=== PATIENT | female | born 1980 | race Caucasian/White ===

== ENCOUNTER 2016-04-23 15:27 | Emergency (ER) | payer BC ==
[2016-04-23 16:00] VITALS: BP 119/77; PULSE 74; TEMP 98.5; BMI 27.3
--- NOTE | 2016-04-23 16:03 | PDOC ---
History of Present Illness - General History Source: Patient Exam Limitations: No Limitations - History of Present Illness Initial Comments: 04/23/16 16:06 The patient is a 35 year old female, with no significant past medical history, who presents today with a head injury that occurred at 10:30am. She explains that her children were sledding and crashed into her as she was attempting to stop the sled. She states that she was knocked into the air and landed onto her upper back first, then hit her head on the ground. She states that she got the wind knocked out of her. At 12pm, one hour after the accident, she started to feel weird and explains a tingling feeling in her head, but reports that she was also anxious after the head injury. She took 2 advil for the headache with relief. Denies LOC, vomiting, visual changes. Denies any other injury. Denies fever, chills. Allergies: None reported <Janet Barillas - Last Filed: 04/23/16 16:06> <Frederic Antony - Last Filed: 04/23/16 16:10> - General Chief Complaint: Injury Stated Complaint: HIT HEAD Time Seen by Provider: 04/23/16 15:37 Past History <Janet Barillas - Last Filed: 04/23/16 16:06> - Past Medical History Other medical history: DENIES - Psycho/Social/Smoking Cessation Hx Anxiety: No Suicidal Ideation: No Smoking Status: No Smoking History: Never smoked Have you smoked in the past 12 months: No Number of Cigarettes Smoked Daily: 0 Information on smoking cessation initiated: No Hx Alcohol Use: No Drug/Substance Use Hx: No Substance Use Type: None <Frederic Antony - Last Filed: 04/23/16 16:10> - Past Medical History Allergies/Adverse Reactions: Allergies Allergy/AdvReac Type Severity Reaction Status Date / Time No Known Allergies Allergy Verified 04/23/16 15:47 Home Medications: Ambulatory Orders Ibuprofen [Advil -] 400 mg PO ONCE PRN 04/23/16 Review of Systems - Review of Systems Able to Perform ROS?: Yes Comments:: 04/23/16 16:07 CONSTITUTIONAL: Absent: Fever, Chills, Diaphoresis, Generalized Weakness, Malaise, Loss of Appetite HEENT: Absent: Rhinorrhea, Nasal Congestion, Throat Pain, Throat Swelling, Difficulty Swallowing, Mouth Swelling, Ear Pain, Eye Pain, Visual Changes CARDIOVASCULAR: Absent: Chest Pain, Syncope, Palpitations, Irregular Heart Rate, Lightheadedness , Peripheral Edema MUSCULOSKELETAL: Absent: Myalgia, Arthralgia, Joint Swelling, Back pain, Neck Pain SKIN: Absent: Rash, Itching, Pallor NEUROLOGIC: Present: mild head pain Absent: Focal Weakness, Paresthesias, Vertigo, Lightheadedness, Unsteady Gait, Seizure, Mental Status Changes, Incontinence PSYCHIATRIC: Absent: Anxiety, Depression <Janet Barillas - Last Filed: 04/23/16 16:06> *Physical Exam - Vital Signs Last Vital Signs Temp Pulse Resp BP Pulse Ox 98.5 F 74 20 119/77 99 04/23/16 15:29 04/23/16 15:29 04/23/16 15:04/23/16 15:04/23/16 15:29 - Physical Exam Comments: 04/23/16 16:07 GENERAL: [The patient is awake, alert, and fully oriented, in no acute distress. ] HEAD: [Normal with no signs of trauma.] EYES: [Pupils equal, round and reactive to light, extraocular movements intact, sclera anicteric, conjunctiva clear.] EXTREMITIES: [Normal range of motion, no edema. Sensation intact. Circulation intact.] PSYCH: [Normal mood, normal affect.] SKIN: [Warm, Dry, normal turgor, no rashes or lesions noted.] NEURO: Mental status: The patient is oriented x3. Cranial nerves: Cranial nerves II through XII are intact Motor: The upper extremities are 5 over 5 in all muscle groups. The lower extremities are 5 over 5 in all muscle groups. Sensation: Sensation is intact to light touch throughout. Cerebellar: [id number] is normal in both upper extremities. Heel-knee- olson is normal in both lower extremities. Reflexes: 2+ and symmetric in the upper and lower extremities. <Janet Barillas - Last Filed: 04/23/16 16:06> - Vital Signs Last Vital Signs Temp Pulse Resp BP Pulse Ox 98.5 F 74 20 119/77 99 04/23/16 15:29 04/23/16 15:29 04/23/16 15:29 04/23/16 15:29 04/23/16 15:29 <Frederic Antony - Last Filed: 04/23/16 16:10> Medical Decision Making - Medical Decision Making 04/23/16 16:09 Patient is a healthy 35-year-old woman who presents after getting knocked down while her children were sledding. She fell and hit her back and then her head. Given the absence of loss of consciousness and the normal neurological examination, along with her not meeting criteria for CT scanning based on the CT guidelines, patient was reassured and discharged home. She was advised to rest and take Tylenol. She was given head injury instructions for indications for follow-up. Impression: Minor concussion without loss of consciousness. No need for head CT. Plan: Patient given reassurance and advised Tylenol. The scribe's documentation has been prepared under my direction and personally reviewed by me in its entirety. I have confirmed that the note above accurately reflects all work, treatment, procedures, and medical decision- making performed by me. <Frederic Antony - Last Filed: 04/23/16 16:10> *DC/Admit/Observation/Transfer <Janet Barillas - Last Filed: 04/23/16 16:06> - Discharge Dispostion Admit: No <CassiaFrederic Tripathi - Last Filed: 04/23/16 16:10> Diagnosis at time of Disposition: Head injury Qualifiers: Encounter type: initial encounter Qualified Code(s): S09.90XA - Unspecified injury of head, initial encounter - Discharge Dispostion Disposition: HOME Condition at time of disposition: Stable - Referrals Referrals: Hermes Best MD [Primary Care Provider] - - Patient Instructions Printed Discharge Instructions: DI for Closed Head Injury Additional Instructions: You were evaluated today after hitting your head. Based on no loss of consciousness and a normal neurological exam, you do not meet the guidelines for requiring a head CT scan. Rest at home, take tylenol as needed for any mild headache. If you develop severe or progressive symptoms, return immediately to the emergency department. Refer to the head injury discharge instructions. Otherwise follow-up with your primary care MJacqueline
== END 2016-04-23 16:12 | disposition home or self-care (01) ==
LOC: FER 15:27
DX: S09.90XA Unspecified injury of head, initial encounter (principal); W18.39XA Other fall on same level, initial encounter; Y93.23 Activity, snow (alpine) (downhill) skiing, snowboarding, sledding, tobogganing and snow tubing; Y92.89 Other specified places as the place of occurrence of the external cause
CPT/HCPCS: 99282-25

== ENCOUNTER 2018-06-01 17:22 | Emergency (ER) | payer BC ==
[2018-06-01 17:38] VITALS: BP 128/71; PULSE 77; TEMP 98; BMI 28.1
[2018-06-01] MEDS ORDERED: FAMOTIDINE 20 MG TABLET PO ONE (17:42)
[2018-06-01] MEDS ORDERED: predniSONE 20 MG TABLET (UD) PO ONE ×2 (17:42)
[2018-06-01] MEDS ORDERED: predniSONE 20 MG TABLET (UD) ONE (17:44)
[2018-06-01] MEDS ORDERED: FAMOTIDINE 20 MG TABLET ONE (17:44)
[2018-06-01] MEDS ORDERED: predniSONE 10 MG TABLET (UD) ONE (17:44)
--- NOTE | 2018-06-01 17:47 | PDOC ---
History of Present Illness - General Chief Complaint: Allergic Reaction Stated Complaint: allergic reaction Time Seen by Provider: 06/01/18 17:29 - History of Present Illness Initial Comments: 06/01/18 18:01 The patient is a 37 year old female, with no significant PMH, who presents to the emergency department for evaluation of an allergic reaction. 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 She reports the hives look like big mosquito bites. The patient states that she took a 25mg benadryl after the episode last night and woke up this morning with little relief. She then took another this morning and two more around 1pm. She notes that some of the bumps has gone away, but she is still broken out and itchy. Denies sensation of throat closing. Has had similar reactions before after eating shrimp. Has never needed an epi pen before. The patient denies chest pain, shortness of breath, headache and dizziness. Denies fever, chills, nausea, vomit, diarrhea and constipation. Denies dysuria, frequency, urgency and hematuria. Allergies: shrimp, shellfish Past History - Past Medical History Allergies/Adverse Reactions: Allergies Allergy/AdvReac Type Severity Reaction Status Date / Time shrimp Allergy Verified 06/01/18 17:23 Home Medications: Ambulatory Orders Diphenhydramine HCl [Benadryl -] 25 mg PO Q6H 06/01/18 Nitrofurantoin Monohyd/M-Cryst [Macrobid -] 100 mg PO BID 06/01/18 COPD: No - Suicide/Smoking/Psychosocial Hx Smoking Status: No Smoking History: Never smoked Have you smoked in the past 12 months: No Number of Cigarettes Smoked Daily: 0 Information on smoking cessation initiated: No Hx Alcohol Use: No Drug/Substance Use Hx: No Substance Use Type: None Review of Systems - Review of Systems Comments:: 06/01/18 18:02 GENERAL/CONSTITUTIONAL: No fever or chills. No weakness. HEAD, EYES, EARS, NOSE AND THROAT: (+) tongue numbness. No change in vision. No ear pain or discharge. No sore throat. GASTROINTESTINAL: No nausea, vomiting, diarrhea or constipation. GENITOURINARY: No dysuria, frequency, or change in urination. CARDIOVASCULAR: No chest pain or shortness of breath. RESPIRATORY: No cough, wheezing, or hemoptysis. MUSCULOSKELETAL: No joint or muscle swelling or pain. No neck or back pain. NEUROLOGIC: No headache, vertigo, loss of consciousness, or change in strength/ sensation. ENDOCRINE: No increased thirst. No abnormal weight change. HEMATOLOGIC/LYMPHATIC: No anemia, easy bleeding, or history of blood clots. ALLERGIC/IMMUNOLOGIC: (+) Hives to the bikini line, neck, chest, and extremities. (+)Itching *Physical Exam - Vital Signs Last Vital Signs Temp Pulse Resp BP Pulse Ox 98 F 77 20 128/71 99 06/01/18 17:23 06/01/18 17:23 06/01/18 17:23 06/01/18 17:23 06/01/18 17:23 - Physical Exam Comments: 06/01/18 18:02 GENERAL: Awake, alert, and fully oriented, in no acute distress HEAD: No signs of trauma EYES: PERRLA, EOMI, sclera anicteric, conjunctiva clear ENT: Nares patent, oropharynx clear without exudates or edema. Uvular midline. No tongue swelling. Moist mucosa NECK: Normal ROM, supple, no lymphadenopathy, JVD, or masses LUNGS: Breath sounds equal, clear to auscultation bilaterally. No wheezes, and no crackles HEART: Regular rate and rhythm, normal S1 and S2, no murmurs, rubs or gallops ABDOMEN: Soft, nontender, normoactive bowel sounds. No guarding, no rebound. No masses EXTREMITIES: Normal range of motion, no edema. No cords, erythema, or tenderness NEUROLOGICAL: Normal speech, cranial nerves intact, equal strength and sensation b/l SKIN: erythema noted posterior to ears b/l. +1-2mm erythematous papules, some excoriated, along bra line and bikini line Moderate Sedation - Procedure Monitoring Vital Signs: Procedure Monitoring Vital Signs Temperature 98 F 06/01/18 17:23 Pulse Rate 77 06/01/18 17:23 Respiratory Rate 20 06/01/18 17:23 Blood Pressure 128/71 06/01/18 17:23 O2 Sat by Pulse Oximetry (%) 99 06/01/18 17:23 Medical Decision Making - Medical Decision Making 06/01/18 17:44 37yo F hx allergy to shrimp presents to the ED with rash, tongue tingling after possble exposure to shrimp last night. Pt has taken benadryl 25mg this AM, followed by 50mg 4 hours ago, but due to persistent tongue tingling and persistent rash, she presented to the ED. Vitals in ED wnl. Exam with erythema posterior to ears b/l and pinpoint papules along bikini line. No clinical evidence of anaphylaxis. Plan to treat pt with pepcid, steroids and reassess.
== END 2018-06-01 19:04 | disposition home or self-care (01) ==
LOC: FER 17:22
DX: T78.40XA Allergy, unspecified, initial encounter (principal)
CPT/HCPCS: 99282-25